=== PATIENT | female | born 1990 | race Caucasian/White ===

== ENCOUNTER 2016-09-27 09:05 | Emergency (ER) | payer OTHER ==
[2016-09-27 09:13] VITALS: BMI 37.2
[2016-09-27] MEDS ORDERED: ACETAMINOPHEN 325 MG TABLET (FP) PO ONE (09:56)
[2016-09-27] MEDS ORDERED: ACETAMINOPHEN 325 MG TABLET (FP) ONE (10:03)
[2016-09-27 10:11] LABS: URINE APPEARANCE SLCLOUDY; URINE BILIRUBIN NEGATIVE (NEGATIVE); URINE BLOOD NEGATIVE (NEGATIVE); URINE COLOR LTYELLOW; URINE GLUCOSE (UA) NEGATIVE (NEGATIVE); URINE KETONE NEGATIVE (NEGATIVE); URINE NITRITE NEGATIVE (NEGATIVE); URINE PROTEIN NEGATIVE (NEGATIVE); URINE UROBILINOGEN NEGATIVE E.U./dl (0.2-1.0)
[2016-09-27 10:16] LABS: URINE LEUK ESTERASE 1+ (NEGATIVE)
[2016-09-27 10:48] LABS: URINE BACTERIA RARE /hpf (NONE SEEN); URINE MUCUS RARE; URINE RBC 1 /hpf (0-3); URINE WBC 6 /hpf (3-5)
--- NOTE | 2016-09-27 11:32 | PDOC ---
History of Present Illness - General Chief Complaint: Pain, Acute Stated Complaint: FEVER, ABD PAIN, 6 WKS Time Seen by Provider: 09/27/16 09:15 History Source: Patient Exam Limitations: No Limitations - History of Present Illness Travel History: No Initial Comments: 09/27/16 10:32 25-year-old female approx. 6 weeks presents to the ED with complaints of abdominal cramping to the mid suprapubic area for the past 2 weeks which her MANAGER CONTACT doctor states may occur in early . Patient states then started to have a fever since yesterday and took Tylenol last evening. Patient has no urinary, bowel, vaginal discharge, dyspareunia, or vaginal bleeding complaints at this time. Patient also denies lower quadrant pain, back pain, recent travel , recent illness. Quality: reports: mild Abdominal Pain Onset Location: reports: suprapubic Pain Radiation: reports: no radiation Activities at Onset: reports: eating Aggravating Factors: improves with: None Alleviating Factors: improves with: None Past History - Past Medical History Allergies/Adverse Reactions: Allergies Allergy/AdvReac Type Severity Reaction Status Date / Time No Known Allergies Allergy Verified 09/27/16 09:09 Home Medications: Ambulatory Orders No Home Medications 0 dose .ROUTE UTDICT 04/18/12 Cephalexin [Keflex] 500 mg PO BID #14 capsule 09/27/16 Other medical history: DENIES. - Reproductive History Is Patient Now?: Yes (#): 3 Para: 1 Therapeutic (s) & number: Yes (1) - Psycho/Social/Smoking Cessation Hx Anxiety: No Suicidal Ideation: No Smoking Status: No Smoking History: Never smoked Number of Cigarettes Smoked Daily: 0 Patient Lives Alone: No Lives with/in: spouse/SO Review of Systems - Review of Systems Able to Perform ROS?: Yes Constitutional: Yes: Fever HEENTM: No: Symptoms Reported Respiratory: No: Symptoms reported Cardiac (ROS): No: Symptoms Reported ABD/GI: Yes: Abdominal cramping (mid suprapubic) : No: Symptoms Reported Musculoskeletal: No: Symptoms Reported Integumentary: No: Symptoms Reported Neurological: No: Symptoms reported *Physical Exam - Vital Signs Last Vital Signs Temp Pulse Resp BP Pulse Ox 100.3 F H 118 H 19 127/68 97 09/27/16 09:09 09/27/16 09:09 09/27/16 09:09 09/27/16 09:09 09/27/16 09:09 - Physical Exam General Appearance: Yes: Nourished, Appropriately Dressed. No: Apparent Distress HEENT: negative: Pale Conjunctivae Neck: positive: Supple Respiratory/Chest: positive: Lungs Clear, Normal Breath Sounds. negative: Respiratory Distress, Accessory Muscle Use Cardiovascular: positive: Regular Rhythm, Tachycardia (106 on monitor). negative: Murmur Female Pelvic Exam: positive: normal external exam, cervical os closed, normal adnexa. negative: CMT, discharge, vaginal bleeding Gastrointestinal/Abdominal: positive: Soft, Tenderness (mid suprapubic mild no rebound no guarding) Musculoskeletal: negative: CVA Tenderness Extremity: positive: Normal Capillary Refill. negative: Pedal Edema Integumentary: positive: Normal Color, Warm, Moist Neurologic: positive: Motor Strength 5/5 (ambulatory) ED Treatment Course - ADDITIONAL ORDERS Additional order review: Laboratory Results 09/27/16 09:50 Urine Color Ltyellow Urine Appearance Slcloudy Urine pH 7.0 D Ur Specific [place] 1.013 Urine Protein Negative Urine Glucose (UA) Negative Urine Ketones Negative Urine Blood Negative Urine Nitrite Negative Urine Bilirubin Negative Urine Urobilinogen Negative Ur Leukocyte Esterase 1+ H Urine RBC 1 Urine WBC 6 Ur Epithelial Cells Moderate Urine Bacteria Rare Urine Mucus Rare - Medications Given in the ED: ED Medications Discontinued Medications Generic Name Dose Route Start Last Admin Trade Name Freq PRN Reason Stop Dose Admin Acetaminophen 650 mg 09/27/16 09:56 09/27/16 10:04 Tylenol - PO 09/27/16 09:57 650 mg ONCE ONE Administration Medical Decision Making - Medical Decision Making 09/27/16 10:35 Patient complaints of mid suprapubic cramping over the past 2 weeks without associated symptoms but states had chills and felt warm yesterday. Patient arrives with temperature of 100.3 orally and slightly tachycardic. Patient given a pitcher of water, Tylenol urine was collected for analysis and culture. If patient's urine is negative will continue with blood work and for ultrasound. 09/27/16 11:36 Laboratory Tests 09/27/16 09:50 Urine Ketones Negative Ur Leukocyte Esterase 1+ H Urine WBC 6 Will vitalize. 09/27/16 11:51 Selected Entries 09/27/16 11:40 Temperature 99.1 F Pulse Rate [ 98 H Right] Respiratory Non-Labored Effort Blood Pressure 102/68 [Right Arm] O2 Sat by Pulse 98 Oximetry (%) Patient states feeling better and will discharge home with Keflex. Patient to follow-up with her MANAGER CONTACT next week as scheduled or return to ED if symptoms worsen *DC/Admit/Observation/Transfer Diagnosis at time of Disposition: Urinary tract infection Qualifiers: Urinary tract infection type: acute cystitis Hematuria presence: without hematuria Qualified Code(s): N30.00 - Acute cystitis without hematuria - Discharge Dispostion Disposition: HOME Condition at time of disposition: Good - Prescriptions Prescriptions: Cephalexin [Keflex] 500 mg PO BID #14 capsule - Referrals Referrals: Azar Giordano MD [Primary Care Provider] - - Patient Instructions Printed Discharge Instructions: DI for Urinary Tract Infection (UTI) Additional Instructions: Please drink plenty of water throughout the day and may take Tylenol for fever or discomfort. Please take Keflex until completed. Please follow up with her MANAGER CONTACT as scheduled next week . Otherwise return to ED if symptoms worsen.
[2016-09-27 11:41] VITALS: BP 102/68; PULSE 98; TEMP 99.1
== END 2016-09-27 11:50 | disposition home or self-care (01) ==
LOC: JER 09:05
DX: O23.41 Unspecified infection of urinary tract in pregnancy, first trimester (principal); Z3A.01 Less than 8 weeks gestation of pregnancy
CPT/HCPCS: 81003; 81015; 87086; 99282-25

== ENCOUNTER 2016-10-12 12:54 | Emergency (ER) | payer OTHER ==
[2016-10-12 13:11] VITALS: TEMP 97.9; BMI 37.2
--- NOTE | 2016-10-12 14:20 | PDOC ---
History of Present Illness - General Chief Complaint: Vaginal Bleeding Stated Complaint: VAG BLEEDING (9 WKS ) Time Seen by Provider: 10/12/16 13:58 History Source: Patient Exam Limitations: No Limitations - History of Present Illness Initial Comments: CHIEF COMPLAINT: 25 y/o afebrile, [id number], approximately 10 week female with LMP 07/30/16 c/o vaginal bleeding today. HISTORY OF PRESENT ILLNESS: The patient also admits to low back pain since yesterday that feels like she is going to get her period. She denies f/c, n/v/d , CP, SOB, abd pain, hematuria, dysuria, passage of clots. Vital signs on arrival are within normal limits. REVIEW OF SYSTEMS: GENERAL/CONSTITUTIONAL: No fever/chills. No weakness. No weight change. HEAD, EYES, EARS, NOSE AND THROAT: No change in vision. No ear pain or discharge. No sore throat. CARDIOVASCULAR: No chest pain or shortness of breath. RESPIRATORY: No cough, wheezing, or hemoptysis. GASTROINTESTINAL: No abd pain, nausea, vomiting, diarrhea. GENITOURINARY: No dysuria, frequency, or change in urination. +vaginal bleeding MUSCULOSKELETAL: No joint or muscle swelling or pain. No neck pain. +low back pain SKIN: No rash or easy bruising. NEUROLOGIC: No headache, vertigo, loss of consciousness, or loss of sensation. PHYSICAL EXAM: GENERAL: The patient is awake, alert, and fully oriented, in no acute distress. She is obese, ambulatory and well appearing. HEAD: Normal with no signs of trauma. ENT: Pupils equal, round and reactive to light, extraocular movements intact, sclera anicteric, conjunctiva clear. Neck supple. LUNGS: Clear to auscultation bilaterally. Normal excursion. No respiratory distress or use of accessory muscles. CV: RRR, S1/S2, no MRG. Cap refill < 2 sec. ABDOMEN: Soft, non-distended, non-tender even to deep palpation, no hepatomegaly or splenomegaly, no masses. BACK: No CVA TTP b/l. VAGINAL: Moderate red blood on labia majora. Minimal red blood noted in vaginal vault on internal vagina exam. No CMT. No adnexal tenderness. EXTREMITIES: Normal range of motion, no edema. NEUROLOGICAL: Normal speech, normal gait. CN II-XII grossly intact. PSYCH: Normal mood, normal affect. SKIN: Warm, dry, normal turgor, no rashes or lesions noted. Past History - Past Medical History Allergies/Adverse Reactions: Allergies Allergy/AdvReac Type Severity Reaction Status Date / Time No Known Allergies Allergy Verified 10/12/16 13:09 Home Medications: Ambulatory Orders No Home Medications 0 dose .ROUTE UTDICT 04/18/12 Cephalexin [Keflex] 500 mg PO BID #14 capsule 09/27/16 Nitrofurantoin Monohyd/M-Cryst [Macrobid -] 100 mg PO BID #14 capsule 10/12/16 Other medical history: PT DENIES MEDICAL HX - Reproductive History (#): 3 Para: 1 Therapeutic (s) & number: Yes (1) - Psycho/Social/Smoking Cessation Hx Anxiety: No Suicidal Ideation: No Smoking Status: No Smoking History: Never smoked Number of Cigarettes Smoked Daily: 0 Hx Alcohol Use: No Drug/Substance Use Hx: No *Physical Exam - Vital Signs Last Vital Signs Temp Pulse Resp BP Pulse Ox 97.9 F 75 16 114/74 100 10/12/16 13:09 10/12/16 13:09 10/12/16 13:09 10/12/16 13:09 10/12/16 13:09 ED Treatment Course - LABORATORY CBC & Chemistry Diagram: 10/12/16 14:01 10/12/16 14:01 - RADIOLOGY Radiology Studies Ordered: Category Date Time Status TRANSVAGINAL US PREG [US] Stat Ultrasound 10/12/16 13:59 Ordered Medical Decision Making - Medical Decision Making A/P: 25 y/o female, approximately 10 week female with vaginal bleeding. Plan is as follows: 1. Labs 2. UA/culture 3. Ultrasound Ultrasound IMPRESSION: Single viable intrauterine gestation at approximately 10 weeks 4 days as discussed above. B+ blood type Labs unremarkable. gave the patient her results. Will treat for UTI. She was given keflex 4 weeks ago for a UTI. WIll treat with Macrobid. Instructed the patient to f/u with Dr. Macdonald within 1 week and return to the ER with any worsening or concerning symptoms. The patient verbalizes understanding of all instructions, has no further questions and is awaiting discharge. *DC/Admit/Observation/Transfer Diagnosis at time of Disposition: Urinary tract infection Qualifiers: Urinary tract infection type: acute cystitis Hematuria presence: with hematuria Qualified Code(s): N30.01 - Acute cystitis with hematuria Vaginal bleeding in Qualifiers: Trimester: first trimester Qualified Code(s): O46.91 - Antepartum hemorrhage, unspecified, first trimester - Discharge Dispostion Disposition: HOME Condition at time of disposition: Good - Prescriptions Prescriptions: Nitrofurantoin Monohyd/M-Cryst [Macrobid -] 100 mg PO BID #14 capsule - Referrals Referrals: Azar Giordano MD [Primary Care Provider] - Panfilo Macdonald MD [Staff Physician] - - Patient Instructions Printed Discharge Instructions: DI for Urinary Tract Infection (UTI), DI for Vaginal Bleeding During Additional Instructions: Discharge instructions: -Take medication as prescribed -Drink at least 64oz of water daily -Take daily vitamins -Follow up with Dr. Macdonald within 1 week -Return to the ER with any worsening or concerning symptoms
[2016-10-12 14:43] LABS: BASOPHIL 0.4 % (0-2.0); EOSINOPHIL 0.4 % (0-4.5); MCHC 30.8 g/dl (32.0-36.0); MEAN CELL VOLUME 64.6 fl (80-96); MEAN PLT VOLUME 9.1 fl (7.5-11.1); NEUTROPHILS 66.3 % (42.8-82.8); PLATELET COUNT 292 K/MM3 (134-434); RDW 20.8 % (11.6-15.6); WHITE BLOOD COUNT 10.9 K/mm3 (4.0-10.0)
[2016-10-12 14:44] LABS: MCH 19.9 pg (25.7-33.7)
[2016-10-12 14:45] LABS: URINE APPEARANCE SLCLOUDY; URINE BILIRUBIN NEGATIVE (NEGATIVE); URINE COLOR YELLOW; URINE GLUCOSE (UA) NEGATIVE (NEGATIVE); URINE KETONE NEGATIVE (NEGATIVE); URINE NITRITE NEGATIVE (NEGATIVE); URINE UROBILINOGEN NEGATIVE E.U./dl (0.2-1.0)
[2016-10-12 14:50] LABS: URINE BLOOD 3+ (NEGATIVE); URINE LEUK ESTERASE TRACE (NEGATIVE); URINE PROTEIN 1+ (NEGATIVE)
[2016-10-12 14:57] LABS: URINE RBC 6 /hpf (0-3); URINE WBC 5 /hpf (3-5)
[2016-10-12 15:08] LABS: ALBUMIN 3.4 g/dl (3.4-5.0); ANION GAP 8 (8-16); BILIRUBIN,TOTAL 0.2 mg/dL (0.2-1.0); CALCIUM 8.6 mg/dL (8.5-10.1); CO2 27 mmol/L (21-32); CREATININE 0.5 mg/dL (0.55-1.02); GLUCOSE,RANDOM 90 mg/dL (74-106); SGOT/AST 12 U/L (15-37); SGPT/ALT 17 U/L (12-78); TOT PROT 8.1 g/dl (6.4-8.2)
[2016-10-12 15:23] LABS: ALK PHOS 78 U/L (45-117)
--- NOTE | 2016-10-12 16:17 | PDOC ---
[id number] 100 10/12/16 13:09 10/12/16 13:09 10/12/16 13:09 10/12/16 13:09 10/12/16 13:09 ED Treatment Course - LABORATORY CBC & Chemistry Diagram: 10/12/16 14:01 10/12/16 14:01 - ADDITIONAL ORDERS Additional order review: Laboratory Results 10/12/16 10/12/16 10/12/16 14:01 14:01 14:01 Sodium 138 Potassium 4.3 Chloride 103 Carbon Dioxide 27 Anion Gap 8 BUN 9 Creatinine 0.5 L Creat Clearance w eGFR > 60 Random Glucose 90 Calcium 8.6 Total Bilirubin 0.2 AST 12 L ALT 17 Alkaline Phosphatase 78 Total Protein 8.1 Albumin 3.4 Beta HCG, Quant 33056.9 Urine Color Yellow Urine Appearance Slcloudy Urine pH 6.0 Ur Specific [place] 1.027 Urine Protein 1+ H Urine Glucose (UA) Negative Urine Ketones Negative Urine Blood 3+ H Urine Nitrite Negative Urine Bilirubin Negative Urine Urobilinogen Negative Ur Leukocyte Esterase Trace H D Urine RBC 6 Urine WBC 5 Ur Epithelial Cells Few Blood Type B POSITIVE Antibody Screen Negative 10/12/16 14:01 RBC 5.25 H MCV 64.6 L MCHC 30.8 L RDW 20.8 H MPV 9.1 Neutrophils % 66.3 Lymphocytes % 28.2 Monocytes % 4.7 Eosinophils % 0.4 Basophils % 0.4 Medical Decision Making - Medical Decision Making 10/12/16 16:16 Patient seen and evaluated with the nurse practitioner. I agree with the overall evaluation, assessment, and management with the following summary of visit: 25-year-old female presents with first trimester vaginal bleeding. Agree with management as outlined: hcg, RH, UA, sono Dispo accordingly *DC/Admit/Observation/Transfer Diagnosis at time of Disposition: Urinary tract infection Qualifiers: Urinary tract infection type: acute cystitis Hematuria presence: with hematuria Qualified Code(s): N30.01 - Acute cystitis with hematuria Vaginal bleeding in Qualifiers: Trimester: first trimester Qualified Code(s): O46.91 - Antepartum hemorrhage, unspecified, first trimester - Discharge Dispostion Disposition: HOME Condition at time of disposition: Good - Prescriptions Prescriptions: Nitrofurantoin Monohyd/M-Cryst [Macrobid -] 100 mg PO BID #14 capsule - Referrals Referrals: Panfilo Macdonald MD [Staff Physician] - Azar Giordano MD [Primary Care Provider] - - Patient Instructions Printed Discharge Instructions: DI for Urinary Tract Infection (UTI), DI for Vaginal Bleeding During Additional Instructions: Discharge instructions: -Take medication as prescribed -Drink at least 64oz of water daily -Take daily vitamins -Follow up with Dr. Macdonald within 1 week -Return to the ER with any worsening or concerning symptoms
[2016-10-12] MEDS ORDERED: NITROFURANTOIN MACROCRYSTAL 50 MG CAPSULE (FP) PO SCH (16:45)
[2016-10-12] MEDS ORDERED: NITROFURANTOIN MACROCRYSTAL 50 MG CAPSULE (FP) ONE (17:05)
[2016-10-12 17:11] VITALS: BP 121/70; PULSE 80
[2016-10-12 19:29] LABS: PLATELET ESTIMATE ADEQUATE (NORMAL)
[2016-10-12 19:30] LABS: ANISOCYTOSIS 2+; HYPOCHROMIA 1+; MICROCYTOSIS 1+
== END 2016-10-12 17:12 | disposition home or self-care (01) ==
LOC: JER 12:54
DX: O26.891 Other specified pregnancy related conditions, first trimester (principal); O46.91 Antepartum hemorrhage, unspecified, first trimester; N30.01 Acute cystitis with hematuria; Z3A.10 10 weeks gestation of pregnancy
CPT/HCPCS: 36415; 76801-TC; 80053; 81003; 81015; 84702; 85025; 86850; 86900; 86901; 87086; 99282-25

== ENCOUNTER 2017-05-11 12:29 | Inpatient (IN) | payer OTHER ==
[2017-05-11 13:24] VITALS: BMI 39.3
[2017-05-11 14:22] LABS: BASOPHIL 0.3 % (0-2.0); EOSINOPHIL 0.2 % (0-4.5); MCH 22.8 pg (25.7-33.7); MCHC 31.3 g/dl (32.0-36.0); MEAN CELL VOLUME 72.9 fl (80-96); MEAN PLT VOLUME 9.1 fl (7.5-11.1); PLATELET COUNT 225 K/MM3 (134-434); RDW 29.6 % (11.6-15.6); WHITE BLOOD COUNT 12.2 K/mm3 (4.0-10.0)
[2017-05-11 14:37] LABS: INR 1.01 (0.82-1.09); PROTHROMBIN TIME (PATIENT) 11.4 SEC (9.98-11.88)
[2017-05-11 14:41] LABS: ACTIVATED PTT 29.8 SECONDS (26.9-34.4)
[2017-05-11 14:45] LABS: ANION GAP 12 (8-16); CALCIUM 8.6 mg/dL (8.5-10.1); CO2 22 mmol/L (21-32); CREATININE 0.6 mg/dL (0.55-1.02); GLUCOSE,RANDOM 98 mg/dL (74-106)
[2017-05-11] MEDS ORDERED: PROMETHAZINE HCL 25 MG/1 ML VIAL IVPUSH ONE (14:50)
[2017-05-11] MEDS ORDERED: BUTORPHANOL TARTRATE 1 MG/ML VIAL IVPUSH ONE (14:50)
--- NOTE | 2017-05-11 14:50 | PN ---
Progress Note (short form) - Note Progress Note: cx 2 cm 80 vx -2 mr, fhr cat 1, pitocin rba discussed
[2017-05-11] MEDS ORDERED: OXYTOCIN 15 UNITS/ LR 250 ML 250 ML IVPB SCH (15:00)
[2017-05-11 15:27] LABS: ANISOCYTOSIS 3+; HYPOCHROMIA 2+; MACROCYTOSIS 1+; MICROCYTOSIS 2+; OVALOCYTE 1+
[2017-05-11] MEDS ORDERED: DEXTROSE 5%-LACTATED RINGERS 1,000 ML IV SCH (15:45)
[2017-05-11] MEDS ORDERED: ELECTROLYTE-148 SOLN 1,000 ML IV SCH (18:30)
[2017-05-11] MEDS ORDERED: FENTANYL/BUPIVACAINE/NS/PF - PCEA - 50 ML DISP.SYRIN EP SCH (18:45)
[2017-05-11 19:30] LABS: ARTERIAL BLOOD GAS BASE EXCESS -7.6 meq/l (-2-2); ARTERIAL BLOOD GAS HCO3 21.3 meq/L (22-26); ARTERIAL BLOOD GAS PO2 27.9 mmHg (80-100)
[2017-05-11 19:33] LABS: ARTERIAL BLOOD GAS pH 7.19 (7.35-7.45); LPM/O2% 21%; PT. ON O2? no; TYPE OF O2 room air
[2017-05-11 19:34] LABS: VENOUS BLOOD GAS HCO3 19.8 meq/L (19-25); VENOUS PH 7.22 (7.32-7.42)
[2017-05-11] MEDS ORDERED: WITCH HAZEL 50% (TUCKS) 40 PAD/JAR PAD TP PRN (19:59)
[2017-05-11] MEDS ORDERED: BISACODYL 10 MG SUPP.RECT RC PRN (19:59)
[2017-05-11] MEDS ORDERED: METHYLERGONOVINE MALEATE 0.2 MG/1 ML AMP IM PRN (19:59)
[2017-05-11] MEDS ORDERED: BENZOCAINE 28 GM HEMORRHOIDAL OINTMENT TP PRN (19:59)
[2017-05-11] MEDS ORDERED: oxyCODONE HCL 5 MG TABLET PO PRN (19:59)
[2017-05-11] MEDS ORDERED: BENZOCAINE 20% 57 GM BOTTLE TP PRN (19:59)
[2017-05-11] MEDS ORDERED: D5W-LR W/ 20 UNITS OXYTOCIN 1,000 ML IV SCH (20:00)
--- NOTE | 2017-05-11 20:36 | HP ---
Past Medical History - Primary Care Physician PCP:: Panfilo Macdonald - Admission Chief Complaint: 40 weeks, rom, early labor History of Present Illness: 26 yo f edc by sono 05/06/17 c/o rom sice 830 am today . no bleeding, no fever , cx 2 cm 80 vx -2 mr ,clear fhr cat1, irregular contraction History Source: Patient Limitations to Obtaining History: No Limitations - Past Medical History ...: 4 ...Para: 1 ...Term: 1 ...: 0 ...Spon : 1 ...Induced : 1 ...Multiple Gestation: 0 ...LMP: 07/30/16 ... Weeks Gestation by Dates: 40.4 ...EDC by Dates: 05/07/17 ...EDC by Sono: 05/06/17 Heme/Onc: Yes: Anemia - Past Surgical History Hx Myomectomy: No Hx Transabdominal Cerclage: No - Smoking History Smoking history: Never smoked Have you smoked in the past 12 months: No Aproximately how many cigarettes per day: 0 - Alcohol/Substance Use Hx Alcohol Use: No - Social History Usual Living Arrangement: Yes: With Spouse History of Recent Travel: No Home Medications - Allergies Allergies/Adverse Reactions: Allergies Allergy/AdvReac Type Severity Reaction Status Date / Time No Known Allergies Allergy Verified 05/11/17 13:27 - Home Medications Home Medications: Ambulatory Orders Vit/Iron Fumarate/FA [ Tablet] 1 tab PO DAILY 03/04/17 Review of Systems - Review of Systems Constitutional: reports: No Symptoms Eyes: reports: No Symptoms HENT: reports: No Symptoms Neck: reports: No Symptoms Cardiovascular: reports: No Symptoms Respiratory: reports: No Symptoms Gastrointestinal: reports: No Symptoms Musculoskeletal: reports: No Symptoms Integumentary: reports: No Symptoms Neurological: reports: No Symptoms Endocrine: reports: No Symptoms Hematology/Lymphatic: reports: No Symptoms Psychiatric: reports: No Symptoms Physical Exam - Maternity Vital Signs: Vital Signs Temperature 98.6 F 05/11/17 20:00 Pulse Rate 91 H 05/11/17 20:15 Respiratory Rate 18 05/11/17 20:15 Blood Pressure 130/76 05/11/17 20:15 O2 Sat by Pulse Oximetry (%) 100 05/11/17 18:45 Constitutional: Yes: Well Nourished, No Distress, Calm Eyes: Yes: WNL, Conjunctiva Clear, EOM Intact HENT: Yes: WNL, Atraumatic, Normocephalic Neck: Yes: WNL, Supple, Trachea Midline Cardiovascular: Yes: WNL, Regular Rate and Rhythm Breast(s): Yes: WNL - Abdominal Exam/OB Fundal Height: 40 Number of Fetuses: Single Presentation: Vertex Contractions: Yes Regularity: Irregular Intensity: Unaware Monitor Mode: External Heart Rate Location: [facility] Category: I Accelerations: Uniform Decelerations: None - Vaginal Exam/OB Vaginal Bleediing: No Nitrazine Test: Negative Presentation: Vertex/Position Station: -2 - Physical Exam Musculoskeletal: Yes: Back Pain Edema: Yes Edema: LLE: Trace, RLE: Trace Deep Tendon Reflex Grade: Normal +2 ...Motor Strength: WNL Psychiatric: Yes: WNL - Labs Lab Results: CBC, BMP 05/11/17 13:55 05/11/17 13:55 Hemorrhage Risk Assessment - Risk Factors Medium Risk Factors: Yes: None High Risk Factors: Yes: None Risk Score: 1 Risk Level: Medium Risk Problem List - Problems (1) Postmaturity , 40-42 weeks gestation Code(s): O48.0 - POST-TERM (2) membrane rupture Code(s): [id number] - Assessment/Plan admit, pitocin rba discussed, agreed to have pitocin for irregular contraction, ROM, , cont, heart monitoring
[2017-05-12] MEDS: ACETAMINOPHEN 325 MG TABLET (FP) PO PRN ×2 (00:28→18:20)
[2017-05-12] MEDS: IBUPROFEN 600 MG TABLET (FP) PO PRN ×2 (00:31→18:21)
[2017-05-12 07:41] LABS: BASOPHIL 0.6 % (0-2.0); EOSINOPHIL 0.1 % (0-4.5); MCH 22.9 pg (25.7-33.7); MCHC 30.8 g/dl (32.0-36.0); MEAN CELL VOLUME 74.4 fl (80-96); MEAN PLT VOLUME 9.6 fl (7.5-11.1); NEUTROPHILS 73.1 % (42.8-82.8); PLATELET COUNT 230 K/MM3 (134-434); RDW 29.4 % (11.6-15.6); WHITE BLOOD COUNT 16.4 K/mm3 (4.0-10.0)
--- NOTE | 2017-05-12 08:15 | PN ---
Progress Note (short form) - Note Progress Note: ppd 1 doing well, no excess vaginal bleeding, voids ok CBC, BMP 05/12/17 06:00 05/11/17 13:55 Last Vital Signs Temp Pulse Resp BP Pulse Ox 97.8 F 83 18 120/74 100 05/12/17 06:00 05/12/17 06:00 05/12/17 06:00 05/12/17 06:00 05/11/17 18:45 abdomen soft, non tender uterus firm, non tender lochia mild , no calf tenderness plan ambulate. observe, plan for d/c home in am Problem List - Problems (1) Postmaturity , 40-42 weeks gestation Code(s): O48.0 - POST-TERM (2) membrane rupture Code(s): [id number] -
[2017-05-12] MEDS: FERROUS SO4 325 MG TABLET (FP) PO SCH ×2 (08:36→17:43)
[2017-05-12] MEDS: PRENATAL VITAMINS W/ FOLIC ACID TABLET (FP) PO SCH (10:20)
[2017-05-12] MEDS ORDERED: DIPHTH,PERTUSS(ACELL),TET 0.5 ML DISP.SYRIN IM ONE (11:30)
[2017-05-12] MEDS ORDERED: SENNOSIDES/DOCUSATE COMBO (SENNA PLUS) TABLET (UD) PO PRN (22:00)
--- NOTE | 2017-05-13 06:22 | PN ---
Post Progress Note Post Day: 2 Type of Delivery: Vital Signs: Vital Signs Temperature 97.5 F L 05/12/17 21:34 Pulse Rate 80 05/12/17 21:34 Respiratory Rate 20 05/12/17 21:34 Blood Pressure 135/76 05/12/17 21:34 O2 Sat by Pulse Oximetry (%) 100 05/11/17 18:45 Breast Exam: Yes: Soft Uterus: Yes: Fundus Firm Abdomen/GI: Yes: Abdomen soft Lochia: Yes: Rubra Lochia, amount: Small Extremities: Yes: Calves non-tender Perineum: Yes: Intact Activity: Ambulating - Labs Labs: CBC WBC 16.4 K/mm3 (4.0-10.0) H D 05/12/17 06:00 RBC 4.61 M/mm3 (3.60-5.2) 05/12/17 06:00 Hgb 10.5 GM/dL (10.7-15.3) L 05/12/17 06:00 Hct 34.2 % (32.4-45.2) 05/12/17 06:00 MCV 74.4 fl (80-96) L 05/12/17 06:00 MCH 22.9 pg (25.7-33.7) L 05/12/17 06:00 MCHC 30.8 g/dl (32.0-36.0) L 05/12/17 06:00 RDW 29.4 % (11.6-15.6) H 05/12/17 06:00 Plt Count 230 K/MM3 (134-434) 05/12/17 06:00 MPV 9.6 fl (7.5-11.1) 05/12/17 06:00 Neutrophils % 73.1 % (42.8-82.8) 05/12/17 06:00 Lymphocytes % 22.0 % (8-40) 05/12/17 06:00 Monocytes % 4.2 % (3.8-10.2) 05/12/17 06:00 Eosinophils % 0.1 % (0-4.5) 05/12/17 06:00 Basophils % 0.6 % (0-2.0) 05/12/17 06:00 Hypochromia 2+ 05/11/17 13:55 Anisocytosis 3+ 05/11/17 13:55 Microcytosis 2+ 05/11/17 13:55 Macrocytosis 1+ 05/11/17 13:55 Ovalocytes 1+ 05/11/17 13:55 Assessment/Plan doing well dc home
[2017-05-13] MEDS: ACETAMINOPHEN 325 MG TABLET (FP) PO PRN (06:49)
[2017-05-13] MEDS: IBUPROFEN 600 MG TABLET (FP) PO PRN (06:49)
[2017-05-13] MEDS: PRENATAL VITAMINS W/ FOLIC ACID TABLET (FP) PO SCH (09:35)
[2017-05-13] MEDS: FERROUS SO4 325 MG TABLET (FP) PO SCH (09:35)
[2017-05-13 11:45] VITALS: BP 123/73; PULSE 84; TEMP 98.5
--- NOTE | 2017-05-16 08:50 | DS ---
Physical Exam-SET O TYPE OPERATOR Vital Signs: Vital Signs Temperature 98.5 F 05/13/17 09:00 Pulse Rate 84 05/13/17 09:00 Respiratory Rate 20 05/13/17 09:00 Blood Pressure 123/73 05/13/17 09:00 O2 Sat by Pulse Oximetry (%) 100 05/11/17 18:45 Constitutional: Yes: Well Nourished, No Distress, Calm Eyes: Yes: WNL, Conjunctiva Clear, EOM Intact HENT: Yes: WNL, Atraumatic, Normocephalic Neck: Yes: WNL, Supple, Trachea Midline Cardiovascular: Yes: WNL, Regular Rate and Rhythm Respiratory: Yes: WNL, Regular, CTA Bilaterally Gastrointestinal: Yes: WNL ...Rectal Exam: Yes: WNL Renal/: Yes: WNL ....Post : Yes: Uterus firm, Uterus non-tender, Slight lochia rubra Breast(s): Yes: WNL Musculoskeletal: Yes: WNL Extremities: Yes: WNL Edema: Yes Edema: LLE: Trace, RLE: Trace Integumentary: Yes: WNL Neurological: Yes: WNL, Alert, Oriented ...Motor Strength: WNL Psychiatric: Yes: WNL, Alert, Oriented Labs: CBC, BMP 05/12/17 06:00 05/11/17 13:55 Delivery - Delivery Vaginal Delivery: Spontaneous (no complication) Type of Anesthesia: Local, Epidural Episiotomy/Laceration: 2nd degree EBL (cc): 500 Delivery, Single - Stages of Labor Date 1st Stage Initiatied: 05/11/17 Time 1st Stage Initiated: 16:00 Date 2nd Stage Initiated: 05/11/17 Time 2nd Stage Initiated: 18:45 Date of Delivery: 05/11/17 Time of Delivery: 19:02 Time Placenta Delivered: 19:06 Placenta: Yes: Spontaneous - Condition of Radiology Receptionist/Public Works Director Present: No Gender: Male Weight: 8 lb 2 oz Position: Left, OA Total Hours ROM (Hrs/Mins): 10h 36m - 1 Minute Total Score: 9 5 Minutes Total Score: 9 - [place] Feeding Plan Initial Plan: Elected not to breastfeed exclusively throughout hospitalization Discharge Summary Reason For Visit: LABOR Procedures: Principal: Condition: Good - Instructions Diet, Activity, Other Instructions: regular diet, if pain, fever, heavy bleeding ,call MD, follow up [facility] 4 weeks Referrals: Panfilo Macdonald MD [Staff Physician] - Disposition: HOME - Home Medications Comprehensive Discharge Medication List: Ambulatory Orders Vit/Iron Fumarate/FA [ Tablet] 1 tab PO DAILY 03/04/17 Ibuprofen [Motrin -] 600 mg PO QID #28 tablet 05/12/17
== END 2017-05-13 12:00 | disposition home or self-care (01) | DRG 560 ==
LOC: JLDR 12:29 → J3W 20:45
PROVIDERS: ADMIT Obstetrics & Gynecology; ATTEND Obstetrics & Gynecology
PROC: 10E0XZZ Delivery of Products of Conception, External Approach (ICD-10-PCS; principal; 2017-05-11)
PROC: 0KQM0ZZ Repair Perineum Muscle, Open Approach (ICD-10-PCS; 2017-05-11)
DX: O48.0 Post-term pregnancy (principal); O70.1 Second degree perineal laceration during delivery; Z3A.40 40 weeks gestation of pregnancy; Z37.0 Single live birth
CPT/HCPCS: 36415; 36600; 59409; 80048; 82803; 85025; 85610; 85730; 86593; 86850; 86900; 86901; 90715

== ENCOUNTER 2021-09-02 15:20 | Inpatient (IN) | payer OTHER ==
[2021-09-02] MEDS ORDERED: OXYTOCIN 30 UNITS in 0.9% NS 30 UNIT/500 ML INFUS.BAG IVPB SCH (17:00)
[2021-09-02] MEDS ORDERED: ELECTROLYTE-148 SOLN 1,000 ML IV SCH ×2 (17:00→21:15)
[2021-09-02 17:21] VITALS: BMI 43.0
[2021-09-02] MEDS ORDERED: OXYTOCIN 30 UNITS in 0.9% NS 30 UNIT/500 ML INFUS.BAG IVPB ONE (17:38)
[2021-09-02 18:09] LABS: PROTHROMBIN TIME (PATIENT) 11.5 SEC (9.7-13.0)
[2021-09-02 18:12] LABS: ACTIVATED PTT 32.6 SECONDS (25.2-36.5)
[2021-09-02 18:18] LABS: BASO % 0.4 % (0-2.0); EOS % 0.4 % (0-4.5); HEMATOCRIT 33.3 % (32.4-45.2); HEMOGLOBIN 10.4 GM/dL (10.7-15.3); LYMPH % 31.6 % (8-40); MCH 21.7 pg (25.7-33.7); MCHC 31.3 g/dl (32.0-36.0); MEAN CELL VOLUME 69.4 fl (80-96); MONO % 4.5 % (3.8-10.2); NEUT % 63.1 % (42.8-82.8); PLATELET COUNT 218 10^3/uL (134-434); RDW 33.3 % (11.6-15.6); WHITE BLOOD COUNT 8.1 K/mm3 (4.0-10.0)
[2021-09-02 18:23] LABS: CALCIUM 8.7 mg/dL (8.5-10.1)
[2021-09-02 18:24] LABS: ALBUMIN 2.7 g/dl (3.4-5.0); BLOOD UREA NITROGEN 9.1 mg/dL (7-18)
[2021-09-02 18:26] LABS: URIC ACID 4.3 mg/dL (2.6-7.2)
[2021-09-02 18:27] LABS: CREATININE 0.4 mg/dL (0.55-1.3)
[2021-09-02 18:28] LABS: BILIRUBIN,TOTAL 0.2 mg/dL (0.2-1)
[2021-09-02 18:30] LABS: RETICULOCYTES 1.59 % (0.5-1.5)
[2021-09-02 18:54] LABS: ANISOCYTOSIS 2+; MACROCYTOSIS 0; OVALOCYTE 1+; PLATELET ESTIMATE NORMAL; TEAR DROP CELLS 1+
[2021-09-02 19:54] LABS: EPI CELLS >36 /uL (0-25.1); HYALINE CASTS 8 /uL (0-3.1); URINE APPEARANCE CLOUDY; URINE BACTERIA 15 /uL (0-1359); URINE BILIRUBIN NEGATIVE (NEGATIVE); URINE COLOR YELLOW; URINE GLUCOSE (UA) NEGATIVE (NEGATIVE); URINE KETONE TRACE (NEGATIVE); URINE LEUK ESTERASE 1+ (NEGATIVE); URINE NITRITE NEGATIVE (NEGATIVE); URINE PROTEIN TRACE (NEGATIVE); URINE RBC 71 /uL (0-23.9); URINE UROBILINOGEN 0.2 mg/dL (0.2-1.0); URINE WBC 23 /uL (0-25.8)
[2021-09-02] MEDS ORDERED: AMPICILLIN - 2 GM in SODIUM CHLORIDE 100 ML IVPB ONE (20:15)
[2021-09-02] MEDS ORDERED: AMPICILLIN SODIUM 2 GM VIAL ONE (20:20)
[2021-09-02] MEDS ORDERED: FENTANYL/BUPIVACAINE/NS/PF - PCEA - 50 ML DISP.SYRIN EP ONE ×2 (21:09→22:01)
[2021-09-02] MEDS ORDERED: NALOXONE HCL 0.4 MG/ML VIAL IVPUSH PRN (22:14)
[2021-09-02] MEDS ORDERED: FENTANYL/BUPIVACAINE/NS/PF - PCEA - 50 ML DISP.SYRIN EP SCH (22:15)
[2021-09-02] MEDS ORDERED: BUPIVACAINE HCL/PF 0.25% (2.5MG/ML) 10 ML VIAL ONE (22:17)
[2021-09-03] MEDS ORDERED: AMPICILLIN - 1 GM in SODIUM CHLORIDE 100 ML IVPB SCH (00:15)
[2021-09-03] MEDS ORDERED: AMPICILLIN SODIUM 1 GM VIAL ONE (00:32)
[2021-09-03] MEDS ORDERED: LIDOCAINE HCL 1% PRESERVATIVE FREE - 30ML VIAL ONE (01:02)
[2021-09-03] MEDS ORDERED: OXYTOCIN 20 UNITS in 0.9% NS 20 UNIT/1,000 ML INFUS.BAG IV ONE (01:02)
[2021-09-03] MEDS ORDERED: METHYLERGONOVINE MALEATE 0.2 MG/1 ML AMP IM PRN (01:22)
[2021-09-03] MEDS ORDERED: BISACODYL 10 MG SUPP.RECT RC PRN (01:22)
[2021-09-03] MEDS ORDERED: ACETAMINOPHEN 325 MG TABLET (FP) PO PRN (01:22)
[2021-09-03] MEDS ORDERED: BENZOCAINE 20% 57 GM BOTTLE TP PRN (01:22)
[2021-09-03] MEDS ORDERED: BENZOCAINE 28 GM HEMORRHOIDAL OINTMENT TP PRN (01:22)
[2021-09-03] MEDS ORDERED: oxyCODONE HCL 5 MG TABLET PO PRN (01:22)
[2021-09-03] MEDS ORDERED: WITCH HAZEL 50% (TUCKS) 40 PAD/JAR PAD TP PRN (01:22)
[2021-09-03] MEDS ORDERED: METHYLERGONOVINE MALEATE 0.2 MG/1 ML AMP IM ONE (01:23)
[2021-09-03] MEDS ORDERED: OXYTOCIN 20 UNITS in 0.9% NS 20 UNIT/1,000 ML INFUS.BAG IV SCH (01:30)
[2021-09-03] MEDS ORDERED: IBUPROFEN 600 MG TABLET (FP) PO ONE (01:45)
[2021-09-03] MEDS: IBUPROFEN 600 MG TABLET (FP) PO PRN ×3 (01:49→18:06)
[2021-09-03 03:05] LABS: CORD BASE EXCESS -3.7 mmol/L (0-2); CORD HCO3 24.6 mmHg (20-29); CORD PCO2 57.2 mmHg (30-78); CORD pH 7.251 (7.14-7.44)
[2021-09-03 03:06] LABS: CORD BASE EXCESS -5.1 mmol/L (0-2); CORD HCO3 21.6 mmHg (20-29); CORD PCO2 45.7 mmHg (30-78); CORD pH 7.292 (7.14-7.44)
[2021-09-04 08:12] LABS: BASO % 0.3 % (0-2.0); EOS % 0.8 % (0-4.5); HEMATOCRIT 28.5 % (32.4-45.2); HEMOGLOBIN 8.9 GM/dL (10.7-15.3); LYMPH % 44.9 % (8-40); MCH 22.2 pg (25.7-33.7); MCHC 31.3 g/dl (32.0-36.0); MEAN CELL VOLUME 70.9 fl (80-96); MONO % 4.5 % (3.8-10.2); NEUT % 49.5 % (42.8-82.8); PLATELET COUNT 192 10^3/uL (134-434); RBC 4.02 M/mm3 (3.60-5.2); RDW 32.9 % (11.6-15.6); WHITE BLOOD COUNT 7.6 K/mm3 (4.0-10.0)
[2021-09-04 20:11] VITALS: PULSE 77
[2021-09-04] MEDS ORDERED: SENNOSIDES/DOCUSATE COMBO (SENNA PLUS) TABLET (UD) PO PRN (22:00)
[2021-09-05 10:24] VITALS: BP 127/85; TEMP 98
== END 2021-09-05 12:20 | disposition home or self-care (01) | DRG 560 ==
LOC: JDEL 15:20 → JLDR 16:10 → J3W 09-03 03:30
PROVIDERS: ADMIT Obstetrics & Gynecology; ATTEND Obstetrics & Gynecology
PROC: 10E0XZZ Delivery of Products of Conception, External Approach (ICD-10-PCS; principal; 2021-09-03)
PROC: 0HQ9XZZ Repair Perineum Skin, External Approach (ICD-10-PCS; 2021-09-03)
DX: O48.0 Post-term pregnancy (principal); Z3A.40 40 weeks gestation of pregnancy; O70.0 First degree perineal laceration during delivery; Z37.0 Single live birth
CPT/HCPCS: 36415; 36600; 59409; 80053; 81003; 82570; 82803; 82977; 83010; 84156; 84550; 85025; 85045; 85610; 85730; 86780; 86850; 86900; 86901; C9803; U0003; U0005

== ENCOUNTER 2021-10-25 20:26 | Emergency (ER) | payer OTHER ==
[2021-10-25 20:40] VITALS: TEMP 98.3; BMI 38.9
[2021-10-25 22:31] LABS: EPI CELLS >36 /uL (0-25.1); HCG,QUALITATIVE URINE Negative; HYALINE CASTS 6 /uL (0-3.1); URINE APPEARANCE CLOUDY; URINE BACTERIA 2953 /uL (0-1359); URINE BILIRUBIN NEGATIVE (NEGATIVE); URINE COLOR YELLOW; URINE GLUCOSE (UA) NEGATIVE (NEGATIVE); URINE KETONE NEGATIVE (NEGATIVE); URINE LEUK ESTERASE 1+ (NEGATIVE); URINE NITRITE NEGATIVE (NEGATIVE); URINE PROTEIN NEGATIVE (NEGATIVE); URINE RBC 14 /uL (0-23.9); URINE UROBILINOGEN 0.2 mg/dL (0.2-1.0); URINE WBC 53 /uL (0-25.8)
[2021-10-26] MEDS ORDERED: CEPHALEXIN MONOHYDRATE 500 MG CAPSULE (UD) PO ONE (01:08)
[2021-10-26] MEDS ORDERED: IBUPROFEN 600 MG TABLET (FP) PO ONE ×2 (01:08→01:12)
[2021-10-26] MEDS ORDERED: CEPHALEXIN MONOHYDRATE 500 MG CAPSULE (UD) ONE (01:11)
[2021-10-26 01:16] VITALS: BP 124/82; PULSE 76
== END 2021-10-26 01:16 | disposition home or self-care (01) ==
LOC: JER 20:26
DX: N30.01 Acute cystitis with hematuria (principal)
CPT/HCPCS: 74176-TC; 81003; 84703; 87086; 99284-25

== ENCOUNTER 2024-11-24 05:35 | Emergency (ER) | payer OTHER ==
[2024-11-24 05:42] VITALS: BP 139/101; RESP 18; TEMP 97.2; BMI 29.9
[2024-11-24 06:09] VITALS: PULSE 98
[2024-11-24] MEDS ORDERED: DIPHTH,PERTUSS(ACELL),TET 0.5 ML DISP.SYRIN IM ONE (06:09)
[2024-11-24] MEDS: DIPHTH,PERTUSS(ACELL),TET 0.5 ML DISP.SYRIN IM ONE (06:10)
[2024-11-24] MEDS ORDERED: BACITRACIN ZINC 15 GM TUBE TOPICAL OINTMENT ONE (06:27)
[2024-11-24] MEDS: BACITRACIN ZINC 15 GM TUBE TOPICAL OINTMENT TP ONE (06:40)
== END 2024-11-24 06:41 | disposition home or self-care (01) ==
LOC: JER 05:35
PROC: 3E0234Z Introduction of Serum, Toxoid and Vaccine into Muscle, Percutaneous Approach (ICD-10-PCS; principal; 2024-11-24)
DX: R00.2 Palpitations (principal); S80.211A Abrasion, right knee, initial encounter; S80.212A Abrasion, left knee, initial encounter; Z23 Encounter for immunization; Y04.8XXA Assault by other bodily force, initial encounter
CPT/HCPCS: 90471; 90715; 93005; 93010; 99284-25